=== PATIENT | female | born 1950 | race Caucasian/White ===

== ENCOUNTER 2023-02-07 08:22 | Outpatient (OUT) | payer MEDICARE, SELFPAY ==
--- NOTE | 2023-02-07 | MM_ITS ---
Patient: ADRY COLLAZO Exam Date: 02/07/2023 : 1950 Gender:F Ordering : PHILLIPWander NERI Admission #: [id number] Family : Order #: [id number] CLICK HERE TO VIEW EXAM RADIOLOGY REPORT PROCEDURE: MM TOMOSYNTHESIS SCREENING BI COMPARISON: MAMMO NARINDER SCREEN, 12/01/2021. MAMMO NARINDER SCREEN, 02/09/2020. MG MAMM NARINDER SCRN W CAD DIG, 07/04/2015. MG MAMM NARINDER SCRN W CAD DIG, 05/22/2007. INDICATIONS: screening mammogram Calculator Name NCI Breast Cancer Risk Assessment Tool 5 Year Breast Cancer Risk 1.70% Lifetime Breast Cancer Risk 5.10% Personal Breast Cancer No Personal Ovarian Cancer No Treatments None Family Cancers None LOCATION: [facility] BREAST COMPOSITION: Scattered areas fibroglandular density. FINDINGS: DIAGNOSTIC CATEGORY 2--BENIGN FINDING: RIGHT BREAST: No significant suspicious finding. Scattered benign-appearing calcifications are present. Scattered benign-appearing nodules are present. No significant change has occurred. LEFT BREAST: No significant suspicious finding. Scattered benign-appearing calcifications are present. Scattered benign-appearing nodules are present. No significant change has occurred. RECOMMENDATIONS: ROUTINE MAMMOGRAM AND CLINICAL EVALUATION IN 12 MONTHS. PLEASE NOTE: A NORMAL MAMMOGRAM DOES NOT EXCLUDE THE POSSIBILITY OF BREAST CANCER. A CLINICALLY SUSPICIOUS PALPABLE LUMP SHOULD BE BIOPSIED. Dictated by: Db Soler M.D. on 02/07/2023 at 14:04 Approved by: Db Soler M.D. on 02/07/2023 at 14:06
== END 2023-02-07 08:23 | disposition home or self-care (01) ==
LOC: MAMMO 08:22
DX: Z12.31 Encounter for screening mammogram for malignant neoplasm of breast (principal)
CPT/HCPCS: 77063; 77067